=== PATIENT | male | born 1990 | race Caucasian/White ===

== ENCOUNTER 2017-05-31 10:52 | Emergency (ER) | payer OTHER ==
[~2017-05-31] VITALS: Ht 182.9 cm; Wt 109.0 kg
[2017-05-31] MEDS ORDERED: KETOROLAC 60MG/2ML VIAL IM ONE (12:00)
[2017-05-31] MEDS ORDERED: DEXAMETHASONE 10 MG/ML VIAL IM SCH (12:00)
[2017-05-31] MEDS ORDERED: LORAZEPAM 1MG TABLET PO ONE (12:00)
[2017-05-31] MEDS ORDERED: DEXAMETHASONE 10 MG/ML VIAL IV STA (12:33)
[2017-05-31 12:43] VITALS: BP 115/77
== END 2017-05-31 12:44 | disposition home or self-care (01) ==
LOC: ER 12:27
DX: S16.1XXA Strain of muscle, fascia and tendon at neck level, initial encounter (principal); V49.9XXA Car occupant (driver) (passenger) injured in unspecified traffic accident, initial encounter; F12.10 Cannabis abuse, uncomplicated; Y93.89 Activity, other specified; Y92.89 Other specified places as the place of occurrence of the external cause; Y99.8 Other external cause status
CPT/HCPCS: 96372; 99284; J1100; J1885